=== PATIENT | male | born 1945 | race Caucasian/White ===

== ENCOUNTER 2022-07-13 17:24 | Emergency (ER) | payer MEDICARE ==
[~2022-07-13] VITALS: Ht 185.4 cm; Wt 68.0 kg
[~2022-07-13 17:24] MED LIST: ASPI81CH PO; LISI20 PO; METF500 PO; METO25ER PO; SIMV10 PO; WARF10 PO; XARELTO20 MG PO; ZESTORETIC 20-1 EACH PO
[2022-07-13] MEDS ORDERED: OLAN10 PO (18:50)
== END 2022-07-13 18:55 | disposition home or self-care (01) ==
LOC: ER 17:24
DX: S01.112A Laceration without foreign body of left eyelid and periocular area, initial encounter (principal); W18.30XA Fall on same level, unspecified, initial encounter
CPT/HCPCS: 70450

== ENCOUNTER 2022-08-02 11:46 | Inpatient (IN) | payer MEDICARE ==
[~2022-08-02] VITALS: Ht 175.3 cm; Wt 59.1 kg
[~2022-08-02 11:46] MED LIST changes: +OLAN10 PO
[2022-08-02 12:24] LABS: Hematocrit 40.8 % (37.0-53.0); Hemoglobin 12.7 g/dL (13.5-17.5); Mean Corpuscular HGB 28.2 pg (26.0-34.0); Mean Corpuscular HGB Conc 31.1 g/dL (31.5-36.5); Mean Corpuscular Volume 91 fL (80-100); Mean Platelet Volume 12.7 fL (9.1-12.4); Platelet Count 329 K/mm3 (150-400); RDW Coefficient Variation 13.8 % (11.7-14.2); RDW Standard Deviation 45.9 fL (35.1-46.3); Red Blood Cell Count 4.51 M/mm3 (4.30-5.90); White Blood Cell Count 33.15 K/mm3 (4.00-11.30)
[2022-08-02 12:27] LABS: Base Excess Venous -5.7 mmol/L; Bicarbonate Venous 19.6 mmol/L (24.0-30.0); pH Blood Venous 7.31 (7.34-7.37)
[2022-08-02 12:51] LABS: BAND PERCENT MAN 5 % (0-8); BASOPHILS PERCENT MAN 0 % (0-2); EOSINOPHILS PERCENT MAN 0 % (0-6); LYMPHOCYTES % ATYPICAL MANUAL 1 % (0-0); LYMPHOCYTES ABSOLUTE MAN 0.66 K/mm3 (0.84-5.20); LYMPHOCYTES PERCENT MAN 1 % (21-46); MONOCYTES ABSOLUTE MAN 0.66 K/mm3 (0.16-1.47); MONOCYTES PERCENT MAN 2 % (4-13); NEUTROPHILS ABSOLUTE MAN 31.82 K/mm3 (1.96-9.15); SEG NEUTROPHILS PERCENT MAN 91 % (41-73); TOTAL CELLS COUNTED 100
[2022-08-02 13:38] LABS: Albumin/Globulin Ratio 0.4 (0.8-1.8); Beta-hydroxybutyrate 50.9 mg/dL (0.2-2.8); Bilirubin, Total 0.7 mg/dL (0.1-1.0); Bun/Creatinine Ratio 50.6 (12.0-20.0); Creatinine, Blood 2.45 mg/dL (0.60-1.20); Globulin, Blood 4.7 g/dL (2.2-4.0); Potassium, Blood 3.5 mmol/L (3.5-5.5); Total Protein, Blood 6.7 g/dL (6.4-8.2)
[2022-08-02 14:02] LABS: Source, Urine Clean Catch
[2022-08-02 14:06] LABS: Appearance, Urine Hazy (Clear); Bilirubin, Urine Neg (Neg); Blood, Urine 4+ (Neg); Color, Urine Yellow (P-Yellow); Glucose Qualitative, Urine 4+ (Neg); Ketones, Urine 1+ (Neg); Leukocyte Esterase, Urine Neg (Neg); Nitrite, Urine Neg (Neg); Protein, Urine 1+ (Neg); Specific Gravity, Urine 1.025 (1.003-1.022); Urobilinogen, Urine NORM (Normal)
[2022-08-02 14:24] LABS: White Blood Cells, Urine 0-2 /hpf (0-5)
[2022-08-02 14:27] LABS: Squamous Epithelial Cells Rare /hpf (Few)
[2022-08-02 14:28] LABS: Bacteria Mod /hpf
[2022-08-02 14:33] LABS: Glucose, Blood 729 mg/dL (70-99)
[2022-08-02 16:56] LABS: Influenza A, PCR NEGATIVE (NEGATIVE); Influenza B, PCR NEGATIVE (NEGATIVE); Resp Syncytial Virus, PCR NEGATIVE (NEGATIVE); SARS-Cov-2 (COVID-19) PCR, MMC NEGATIVE (NEGATIVE)
[2022-08-02] MEDS ORDERED: ESCI10 PO (17:09)
[2022-08-02] MEDS ORDERED: ASPI81CH PO (17:09)
[2022-08-02] MEDS ORDERED: Lisinopril-Hct1 EAC4 PO (17:10)
[2022-08-02] MEDS ORDERED: METF500 PO (17:10)
[2022-08-02] MEDS ORDERED: ZOCOR20 MG PO (17:11)
[2022-08-02] MEDS ORDERED: METO25ER PO (17:11)
[2022-08-02] MEDS ORDERED: ACET500 PO (17:11)
[2022-08-02] MEDS ORDERED: OLAN5 PO ×2 (17:12→20:48)
[2022-08-02 19:06] LABS: Calcium, Blood 8.5 mg/dL (8.5-10.1); Creatinine, Blood 2.27 mg/dL (0.60-1.20); Potassium, Blood 3.2 mmol/L (3.5-5.5)
[2022-08-02 20:45] LABS: Source, Urine Foley catheter
[2022-08-02 21:01] LABS: Bilirubin, Urine Neg (Neg); Blood, Urine 4+ (Neg); Glucose Qualitative, Urine 4+ (Neg); Ketones, Urine 1+ (Neg); Leukocyte Esterase, Urine Neg (Neg); Nitrite, Urine Neg (Neg); Protein, Urine 2+ (Neg); Specific Gravity, Urine 1.015 (1.003-1.022); Urobilinogen, Urine NORM (Normal)
[2022-08-02 21:36] LABS: Appearance, Urine Hazy (Clear); Color, Urine Yellow (P-Yellow)
[2022-08-02 21:37] LABS: Mucus Light (0-Heavy); Squamous Epithelial Cells Rare /hpf (Few)
[2022-08-02 21:38] LABS: Amorphous Mod (0-Heavy); Bacteria Many /hpf; Red Blood Cells, Urine 0-2 /hpf (0-2); White Blood Cells, Urine 0-2 /hpf (0-5)
[2022-08-02 21:39] LABS: Uric Acid Crystals Few /hpf
[2022-08-02 21:49] LABS: Bun/Creatinine Ratio 50.9 (12.0-20.0); Calcium, Blood 8.3 mg/dL (8.5-10.1); Creatinine, Blood 2.26 mg/dL (0.60-1.20); Potassium, Blood 2.8 mmol/L (3.5-5.5)
--- NOTE | 2022-08-02 22:22 | NUR ---
PATIENT TO ROOM FROM ED AT 2009, WITH PATIENT. SLID TO THE BED. PATIENT IS ALERT AND ORIENTED TO NONE. WITHDRAWS FROM STIMULI. GRIMACING AND RESTLESS. PER ED NURSE PATIENT MEDICATED WITH RECTAL TYLENOL RIGHT BEFORE TRANSFER. 02 SATS 97% ON 4L VIA NC, COARSE/DRY COUGH. RR 20s. HR SR 80s-90s WITH PVCs. BP STABLE. SÁNCHEZ PATENT AND DRAINING TO GRAVITY, NEW UA SENT. RECTAL TEMP PROBE PLACED FOR MORE ACCURATE TEMPS. INSULIN DRIP INFUSING. DR. RYDER CONSULTED DR. COLLADO REGARDING HIGH SODIUMS, CHANGING FLUIDS NOW.
[2022-08-03 02:58] LABS: Bun/Creatinine Ratio 49.1 (12.0-20.0); Calcium, Blood 8.4 mg/dL (8.5-10.1); Creatinine, Blood 2.24 mg/dL (0.60-1.20); Potassium, Blood 3.5 mmol/L (3.5-5.5)
[2022-08-03 05:27] LABS: Hematocrit 37.7 % (37.0-53.0); Hemoglobin 11.8 g/dL (13.5-17.5); Mean Corpuscular HGB 27.7 pg (26.0-34.0); Mean Corpuscular HGB Conc 31.3 g/dL (31.5-36.5); Mean Corpuscular Volume 89 fL (80-100); Mean Platelet Volume 12.4 fL (9.1-12.4); NRBC ABSOLUTE 0.02 K/mm3 (0.00-0.02); NRBC Auto 0.1 /100 WBC (0.0-0.2); Platelet Count 263 K/mm3 (150-400); RDW Coefficient Variation 13.8 % (11.7-14.2); RDW Standard Deviation 44.5 fL (35.1-46.3); Red Blood Cell Count 4.26 M/mm3 (4.30-5.90); White Blood Cell Count 26.91 K/mm3 (4.00-11.30)
--- NOTE | 2022-08-03 05:57 | NUR ---
SHIFT SUMMARY PATIENT IS ALERT AND ORIENTED TO NONE. OPENS EYES BUT UNABLE TO FOLLOW COMMANDS, WITHDRAWS FROM TOUCH, DR. RYDER TO ROOM DUE TO PATIENT APPEARING TO HAVE A STIFF NECK AND GRIMACING WHEN NECK IS MOVED, WILL CONTINUE TO MONITOR. 02 SATS 95% ON 2L VIA NC, UPPER LOBES COARSE. ORAL CARE DONE. HR SR 70s WITH FREQUENT PVCs. SÁNCHEZ PATENT AND DRAINING DARK YELLOW WITH SEDIMENT. 450 OUT THIS SHIFT. CALLED DR. COLLADO WITH CRITICAL HIGH SODIUM THAT CONTINUES TO INCREASE, SWITCHED FLUIDS TO D5W AND INCREASED RATE. INSULIN DRIP REMAINS INFUSING. PATIENT REPOSITIONED Q2 HOURS. MEDICATED WITH RETAL TYLENOL FOR TEMP 100.9.
[2022-08-03 06:07] LABS: BAND PERCENT MAN 4 % (0-8); BASOPHILS PERCENT MAN 0 % (0-2); EOSINOPHILS PERCENT MAN 0 % (0-6); LYMPHOCYTES ABSOLUTE MAN 0.53 K/mm3 (0.84-5.20); LYMPHOCYTES PERCENT MAN 2 % (21-46); MONOCYTES PERCENT MAN 0 % (4-13); NEUTROPHILS ABSOLUTE MAN 26.37 K/mm3 (1.96-9.15); SEG NEUTROPHILS PERCENT MAN 94 % (41-73); TOTAL CELLS COUNTED 100
[2022-08-03 06:24] LABS: Bun/Creatinine Ratio 49.8 (12.0-20.0); Calcium, Blood 8.5 mg/dL (8.5-10.1); Creatinine, Blood 2.19 mg/dL (0.60-1.20); Potassium, Blood 3.2 mmol/L (3.5-5.5)
--- NOTE | 2022-08-03 07:00 | NUR ---
ASSUME CARE: I have assumed care of this patient. Seizure pads placed on bed.
--- NOTE | 2022-08-03 09:22 | NUR ---
PROVIDER PHONE CALL: Dr Chaves called and notified of pt's complaints of head pain. IV pain medication requested. Dr Sierra was also notified of pt's nuchal rigidity. RN also informed Dr Chaves of provider note with nephronolgy fluid management recommendations and requested clarified IVF orders.
--- NOTE | 2022-08-03 09:48 | NUR ---
[facility] UPDATE: Nurse from [facility] updated with current pt status.
--- NOTE | 2022-08-03 10:24 | NUR ---
"Spiritual Care | Pt. Request (family request) Pt. is in bed and mostly unresponsive. Spouse is present and welcomes my visit. Spouse is unsettled about the decline in Pts. condition, and verbalizes that he had been recently admitted to [facility] ([facility] facility). Listened with empathy and a calming presence. Facilitated a brief life review. Spouse displayed evidence of being comforted. Prayed for Pt. though he did not display any evidence of being aware of the prayer. Spouse requested that this brick yard hand contact her nondenominational and resident care assistant, and verbalized gratitude for the spiritual care visit. Contacted the office at [facility] on behalf of the spouse by phone."
[2022-08-03 11:30] LABS: Bun/Creatinine Ratio 48.8 (12.0-20.0); Creatinine, Blood 2.15 mg/dL (0.60-1.20); Potassium, Blood 3.7 mmol/L (3.5-5.5)
--- NOTE | 2022-08-03 14:41 | NUR ---
PROVIDER UPDATE: Pt oxygen saturations trending down. Sat prob changed several times. Oral care and deep suctioning performed. He is now requiring 10 L oxymizer. RT called to bedside. Hospitalist notified; ABG and CXR requested.
[2022-08-03 15:03] LABS: PCO2 Arterial 45.9 mmHg (35-45); PO2 Arterial 43.1 mmHg (80-100); pH Blood Arterial 7.28 (7.35-7.45)
--- NOTE | 2022-08-03 15:14 | NUR ---
UPDATE: Palliative care RN and hospitalist team at bedside.
--- NOTE | 2022-08-03 15:27 | NUR ---
Called by staff to review increased decline of hemodynamics and worsening ct scan, family and physicns at bedside. Pt went to live at [facility] due to increasing symptoms of worsening dementia. and pt have put advance directives in place for levels of care and pt would not want to prolonged or recusitated. Erasmo menendez support pt placed on comfort care. Will continue pressores nad some supportive measures until children arrive. Family understands that he may pass before thay arrive. Caro called and support care intiated.
--- NOTE | 2022-08-03 16:31 | NUR ---
"Spiritual Care | Nurse request Pt. stats are in decline. Spouse and Pts. youngest son are present and welcome my visit. Son is cathartic. At sons request grief education is given. Spouse has moments of appropriate grief. Scripture is read and prayers for the Pt. and family are given. Lengthy discussions regarding sacha and family re-establish rapport. Will continue to be avilable to the family. Spouse and son verbalize gratitude for the spiritual care visit."
--- NOTE | 2022-08-03 17:57 | NUR ---
SHIFT SUMMARY: Pt transitioned to comfort care after a rapid drop in BP and increasing oxygen demands. Pt remains on levophed of BP support until his son is able to arrive from [facility]. He has been medicated with IV morphine for pain management.
--- NOTE | 2022-08-03 18:02 | NUR ---
pt maintaining family at bedside. awaiting son to arrive.
--- NOTE | 2022-08-03 18:20 | NUR ---
"Spiritual Care | Pre-EOL Education Pt. is coomfort care, and family are gathering. Spouse is present and inquired about EOL logisitics. EOL education is given. Family is choosing [facility] in [place] as their home. Spouse will let the nursing staff know when the family is leaving the Pt."
--- NOTE | 2022-08-03 21:07 | NUR ---
ASSUMED CARE ASSUMED CARE AT 1900. LEVOPHED GTT INFUSING. SEE FLOWSHEET FOR TITRATIONS. PT NOT OPENING EYES, GRIMACING AT TIMES. MEDICATED PER EMAR. OXYMIZER AT 13L. SÁNCHEZ PATENT AND DRAINING TO GRAVITY. PT CHANGED TO COMFORT CARE AT 2006. LEVOPHED GTT TURNED OFF, AND OXYGEN REMOVED. FAMILY AT BEDSIDE.
--- NOTE | 2022-08-03 23:07 | NUR ---
PT TRANSFERRED TO [facility]. PT MEDICATED PRIOR TO TRANSFER AND NO S/S OF DISTRESS NOTED. REPORT GIVEN. AT BEDSIDE.
--- NOTE | 2022-08-03 23:20 | NUR ---
RECEIVED REPORT FRON KIMBERLEE CALDERÓN. THIS RN TOOK OVER CARE UPON TRANSFER TO MEDICAL FLOOR. LEFT AC IV FLUSHED AND SALINE LOCKED. IV RIGHT AC AND RIGHT FA REMOVED FOR 'S COMFORT TO HOLD HIS HAND AND RUB HIS ARM. WOULD LIKE TO DECLINE Q2 TURNS; EDUCATION AND SHARED DECISION MAKING.
--- NOTE | 2022-08-04 05:18 | NUR ---
LUMBER RACKER SUMMARY: UNRESPONSIVE AND ON COMFORT CARE. QUESTIONS ANSWERED AND ANTICIPATORY GUIDANCE PROVIDED TO , CATHI, AT BEDSIDE. SHE DECLINES q2h TURNS AT THIS TIME. SÁNCHEZ PATENT AND DRAINING TO GRAVITY. WILL REPORT TO ONCOMING RN.
--- NOTE | 2022-08-04 09:40 | NUR ---
Comfort care visit to pt and at bedside. Pt in right side lying position. Skin warm, sl damp. Resp even and sl labored. Pt is unresponsive to voice/touch. states this has been true for past 24 hours. She feels his s/s are well managed and that he is comfortable. I offered to reposition pt to left side. Pt's declined and would prefer Umer remain undisturbed because he is so much more comfortable than yesterday on admission. I am not noting any nonverbal indicators of pain, dyspnea, restlessness, agitation or distress. verbalized great appreciation for pt's care from all staff, comfort cart and pal care visits. Case conferenced with pt's RN after my visit. Pt appears to be actively dying and I do not anticipate d/c from hospital.
--- NOTE | 2022-08-04 17:17 | NUR ---
EVENING NOTE PT RESTING QUIETLY. AT BEDSIDE. SÁNCHEZ DRAINING. REPOSITIONED AND BATHED. DECLINED ORAL CARE. CONTINUE POC.
--- NOTE | 2022-08-05 06:23 | NUR ---
PEDIATRIC PATHOLOGIST SUMMARY: CONTINUES TO BE UNRESPONSIVE AND SLEEPING ALL SHIFT. LITTLE TO NO REACTION DURING ADJUSTMENT AND REPOSITIONING. NO MEDICATION NEEDED THIS SHIFT. SLIGHTLY TACHYPNIC, BUT DOES NO APPEAR TO BE IN DISTRESS. WILL REPORT TO ONCOMING RN.
--- NOTE | 2022-08-05 13:25 | NUR ---
FAMILY HAD LEFT FOR LUNCH. DURING ROUNDS FOUND PT NOT BREATHING AND NO HEART BEAT. CALLED GABRIELA HERNANDEZ TO CONFIRM. CALLED CATHI, PT TO NOTIFY HER. CALLED DR HINTON. CONTINUE POC.
--- NOTE | 2022-08-05 15:45 | NUR ---
FINAL DISCHARGE PT REMAINS RELEASED TO [facility]. IV AND SÁNCHEZ REMOVED. NO MEDICATED PATCHS ON REMAINS. CONTINUE POC.
== END 2022-08-05 13:20 | DRG 637 ==
LOC: ER 11:46 → ICUE 17:21 → ICUW 17:21 → ICUE 08-03 00:40 → MEDS 08-03 22:55
PROVIDERS: Family Medicine Adult Medicine; Physician Assistant; Student in an Organized Health Care Education/Training Program; ADMIT Internal Medicine
PROC: 3E03329 Introduction of Other Anti-infective into Peripheral Vein, Percutaneous Approach (ICD-10-PCS; 2022-08-02)
PROC: 3E033XZ Introduction of Vasopressor into Peripheral Vein, Percutaneous Approach (ICD-10-PCS; principal; 2022-08-03)
DX: E11.00 Type 2 diabetes mellitus with hyperosmolarity without nonketotic hyperglycemic-hyperosmolar coma (NKHHC) (principal); A41.9 Sepsis, unspecified organism; G92.8 Other toxic encephalopathy; J85.0 Gangrene and necrosis of lung; R65.20 Severe sepsis without septic shock; E87.0 Hyperosmolality and hypernatremia; N17.9 Acute kidney failure, unspecified; Z51.5 Encounter for palliative care; Z66 Do not resuscitate; F03.C0 Unspecified dementia, severe, without behavioral disturbance, psychotic disturbance, mood disturbance, and anxiety; E87.6 Hypokalemia; I10 Essential (primary) hypertension; E11.65 Type 2 diabetes mellitus with hyperglycemia; E86.0 Dehydration; I95.9 Hypotension, unspecified; Z20.822 Contact with and (suspected) exposure to COVID-19; B95.62 Methicillin resistant Staphylococcus aureus infection as the cause of diseases classified elsewhere; Z85.820 Personal history of malignant melanoma of skin; Z79.899 Other long term (current) drug therapy; Z79.82 Long term (current) use of aspirin; Z86.73 Personal history of transient ischemic attack (TIA), and cerebral infarction without residual deficits; Z79.811 Long term (current) use of aromatase inhibitors; Z79.84 Long term (current) use of oral hypoglycemic drugs; Z98.890 Other specified postprocedural states
CPT/HCPCS: 0241U; 36415; 36600; 51702; 71045; 71250; 80048; 80053; 81001; 82010; 82803; 82947; 83036; 83605; 83735; 84100; 84145; 85025; 87040; 87086; 93306; 96361; 96365; 96366; 96367; 99285-25; A9270; J0696; J1265; J1650; J1815; J2060; J2270; J2543; J3370; J3480; J7030; J7050; J7060; J7070